=== PATIENT | female | born 1985 | race Caucasian/White ===

== ENCOUNTER 2018-09-21 23:50 | Emergency (ER) | payer OTHER ==
[~2018-09-21] VITALS: Ht 162.6 cm; Wt 59.0 kg
[~2018-09-21 23:50] MED LIST: ALBUTEROL INHAL17 GM INH; ALLEGRA-D 24 H1 EACH PO; ASPIR 8181 MG PO; CIPROFLOXACIN500 M1 PO; CLARITIN-D 121 EACH PO; DOXYCYCLINE; DOXYCYCLINE 10100 MG PO; FLONASE 0.05%50 MCG NASAL; IBUPROFEN 800800 M1 PO; METHERGINE; NOHOMEMEDICATIONS; NORCO 5-325 TA1 EACH PO; OXYCODONE HCL 55 MG PO; PROTONIX40 M1 PO; PYRIDIUM200 MG PO; ULTRAM 50MG TAB50 MG PO; ZPAK PO
[2018-09-22] MEDS ORDERED: ALDACTONE50 MG PO (00:07)
[2018-09-22] MEDS ORDERED: VYVANSE30 MG PO (00:07)
[2018-09-22] MEDS ORDERED: CLARITIN10 MG PO (00:08)
[2018-09-22] MEDS ORDERED: MEDROLDOSEPACK PO (01:00)
[2018-09-22] MEDS ORDERED: ZPAK PO (01:00)
[2018-09-22] MEDS ORDERED: PROMETH-CODEIN 65 ML PO (01:00)
[2018-09-22 01:07] LABS: INFLUENZA A ANTIGEN None Detected (None Detect); INFLUENZA B ANTIGEN None Detected (None Detect)
[2018-09-22 01:19] VITALS: BP 124/85
== END 2018-09-22 01:20 | disposition home or self-care (01) ==
LOC: M.ERS 23:50
PROVIDERS: Nurse Practitioner Family
DX: J20.9 Acute bronchitis, unspecified (principal); J45.909 Unspecified asthma, uncomplicated; F17.210 Nicotine dependence, cigarettes, uncomplicated; Z98.890 Other specified postprocedural states

== ENCOUNTER 2018-11-29 12:28 | Emergency (ER) | payer OTHER ==
[~2018-11-29] VITALS: Ht 162.6 cm; Wt 56.8 kg
[~2018-11-29 12:28] MED LIST changes: +ALDACTONE50 MG PO; +CLARITIN10 MG PO; +MEDROLDOSEPACK PO; +PROMETH-CODEIN 65 ML PO; +VYVANSE30 MG PO
[2018-11-29 13:50] LABS: INFLUENZA B ANTIGEN None Detected (None Detect)
[2018-11-29] MEDS ORDERED: TAMIFLU75 MG PO (13:59)
[2018-11-29] MEDS ORDERED: PROAIR HFA8.5 GM PO (13:59)
[2018-11-29] MEDS ORDERED: TESSALON PERLE100 M1 PO (14:06)
[2018-11-29 14:08] VITALS: BP 117/83
== END 2018-11-29 14:09 | disposition home or self-care (01) ==
LOC: M.ERS 12:28
PROVIDERS: Nurse Practitioner Family
DX: J11.1 Influenza due to unidentified influenza virus with other respiratory manifestations (principal); F17.210 Nicotine dependence, cigarettes, uncomplicated; J45.909 Unspecified asthma, uncomplicated

== ENCOUNTER 2020-09-06 12:58 | Emergency (ER) | payer OTHER ==
[~2020-09-06] VITALS: Ht 162.6 cm; Wt 60.3 kg
[~2020-09-06 12:58] MED LIST changes: +PROAIR HFA8.5 GM PO; +TAMIFLU75 MG PO; +TESSALON PERLE100 M1 PO
[2020-09-06] MEDS ORDERED: NAPROSYN500 MG PO (13:08)
[2020-09-06 13:54] LABS: ABSOLUTE EOSINOPHILS 0.1 thou/uL (0.0-0.7); ABSOLUTE LYMPHOCYTES 1.5 thou/uL (0.8-5.3); ABSOLUTE MONOCYTES 0.5 thou/uL (0.0-1.2); ABSOLUTE NEUTROPHILS 2.9 thou/uL (1.6-8.1); BASOPHILS 0.9 %; EOSINOPHILS 1.4 %; HEMOGLOBIN 13.8 gm/dL (12.0-15.0); LYMPHOCYTES 30.2 %; MCH 31.9 pg (26.0-34.0); MCHC 33.7 g/dL (28.0-37.0); MCV 94.8 fL (80.0-100.0); MPV 7.5 fl. (7.2-11.1); NUCLEATED RBCS 0 /100WBC; PLATELET COUNT* 281 thou/uL (150-400); POLYS 58.5 %; RBC 4.33 mil/uL (4.20-5.00); RDW-CV 13.6 % (10.5-14.5)
[2020-09-06 14:05] LABS: CALCIUM 8.1 mg/dL (8.5-10.1); CREATININE 0.7 mg/dL (0.6-1.3); POTASSIUM 3.3 mmol/L (3.5-5.1)
[2020-09-06 14:08] LABS: APTT 24.4 Seconds (25.0-31.3); PROTIME 9.9 Seconds (9.20-11.50)
[2020-09-06 14:17] LABS: INR < 0.9
[2020-09-06 14:18] LABS: MAGNESIUM 1.8 mg/dL (1.8-2.4); TOTAL BILIRUBIN 0.4 mg/dL (<0.1-1.0); TOTAL PROTEIN 7.8 g/dL (6.4-8.2)
[2020-09-06 16:17] VITALS: BP 100/61
--- NOTE | 2020-09-09 08:36 | EKG ---
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 : 1985 Requested By: Pradeep Gasca Order Number: [id number] MD: Carlos Alberto Hyde Measurements Intervals [place] Rate: 107 P: 86 IL: 161 QRS: 89 QRSD: 95 T: 54 QT: 365 QTc: 487 Interpretive Statements Sinus tachycardia Consider right atrial enlargement Borderline prolonged QT interval No previous ECG available for comparison Electronically Signed On 09-09-2020 8:36:23 TELEVISION SPECIALIST by Carlos Alberto Hyde [email or web address] <ELECTRONICALLY SIGNED> By: Elena Hyde MD, [facility] 09/09/20 0836 1303 1303 Elena Hyde MD, FAC /EPI
== END 2020-09-06 16:18 | disposition home or self-care (01) ==
LOC: M.ERS 12:58
PROVIDERS: Emergency Medicine Emergency Medical Services
DX: R00.2 Palpitations (principal); R42 Dizziness and giddiness; R20.2 Paresthesia of skin; R79.1 Abnormal coagulation profile; J00 Acute nasopharyngitis [common cold]; J45.909 Unspecified asthma, uncomplicated; F17.210 Nicotine dependence, cigarettes, uncomplicated; Z98.51 Tubal ligation status; Z79.899 Other long term (current) drug therapy

== ENCOUNTER 2021-02-16 18:47 | Emergency (ER) | payer BC ==
[~2021-02-16] VITALS: Ht 162.6 cm; Wt 54.4 kg
[~2021-02-16 18:47] MED LIST changes: +NAPROSYN500 MG PO
[2021-02-16] MEDS ORDERED: OMEPRAZOLE 20 M20 M1 PO (18:57)
[2021-02-16] MEDS ORDERED: CELEXA 20 MG TA20 MG PO (18:57)
[2021-02-16 19:52] LABS: ABSOLUTE EOSINOPHILS 0.1 thou/uL (0.0-0.7); ABSOLUTE LYMPHOCYTES 1.5 thou/uL (0.8-5.3); ABSOLUTE MONOCYTES 0.3 thou/uL (0.0-1.2); ABSOLUTE NEUTROPHILS 3.2 thou/uL (1.6-8.1); BASOPHILS 0.5 %; HEMATOCRIT 40.6 % (37.0-47.0); HEMOGLOBIN 13.6 gm/dL (12.0-15.0); LYMPHOCYTES 28.8 %; MCHC 33.6 g/dL (28.0-37.0); MCV 95.3 fL (80.0-100.0); MONOCYTES 5.5 %; MPV 7.9 fl. (7.2-11.1); NUCLEATED RBCS 0 /100WBC; PLATELET COUNT* 298 thou/uL (150-400); POLYS 63.2 %; RBC 4.26 mil/uL (4.20-5.00); RDW-CV 14.2 % (10.5-14.5); WBC 5.1 thou/uL (4.0-11.0)
[2021-02-16 20:03] LABS: ANION GAP 7 mmol/L (7-16); BUN 12 mg/dL (7-18); CALCIUM 8.9 mg/dL (8.5-10.1); CHLORIDE 96 mmol/L (98-107); CO2 31 mmol/L (21-32); CREATININE 0.8 mg/dL (0.6-1.3); GLUCOSE 154 mg/dL (70-99); SODIUM 134 mmol/L (136-145)
[2021-02-16 20:05] LABS: APTT 24.2 Seconds (25.0-31.3); PROTIME 10.2 Seconds (9.20-11.50)
[2021-02-16 20:17] LABS: ALBUMIN 3.9 g/dL (3.4-5.0); ALKALINE PHOSPHATASE 50 U/L (46-116); CK-MB MASS < 0.5 ng/mL (<0.5-3.6); LIPASE 221 U/L (73-393); MAGNESIUM 1.9 mg/dL (1.8-2.4); NT-PRO BRAIN NAT PEPTIDE 21 pg/mL (<300); SGOT 48 U/L (15-37); SGPT 37 U/L (30-65); TOTAL BILIRUBIN 0.6 mg/dL (<0.1-1.0); TOTAL PROTEIN 7.8 g/dL (6.4-8.2)
[2021-02-16 21:41] VITALS: BP 122/79
--- NOTE | 2021-02-17 08:32 | EKG ---
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: [facility] : 1985 Requested By: Lion Morales Order Number: [id number] MD: Reg Pablo Measurements Intervals Guy Rate: 120 P: 82 MT: 142 QRS: 88 QRSD: 98 T: -5 QT: 317 QTc: 448 Interpretive Statements Sinus tachycardia Consider right atrial enlargement Borderline repolarization abnormality Compared to ECG 09/06/2020 13:03:10 No significant changes Electronically Signed On 02-17-2021 8:31:57 CDT by Reg Pablo [email or web address] <ELECTRONICALLY SIGNED> By: Reg Pablo MD, [facility] 02/17/21 0831 1852 185 Reg Pablo MD, [facility] /EPI
== END 2021-02-16 21:41 | disposition home or self-care (01) ==
LOC: M.ERS 18:47
PROVIDERS: Family Medicine
DX: E87.6 Hypokalemia (principal); R07.89 Other chest pain; J45.909 Unspecified asthma, uncomplicated; F17.210 Nicotine dependence, cigarettes, uncomplicated